=== PATIENT | female | born 1955 | race Caucasian/White ===

== ENCOUNTER 2022-07-13 11:54 | Emergency (ER) | payer MEDICARE, BC, SELFPAY ==
[2022-07-13] VITALS (19 sets, daily range): BP systolic 126–140; BP diastolic 67–97; PULSE 68–79; RESP 18; TEMP 36.2; O2SAT 90–99; BMI 37.8
--- NOTE | 2022-07-13 12:22 | CRLHL7_ITS ---
For Patients: As a result of the Century Cures Act, medical imaging exams and procedure reports are released immediately into your electronic medical record. You may view this report before your referring provider. If you have questions, please contact your health care provider. CLINICAL HISTORY: Right upper quadrant pain FINDINGS: Liver is enlarged measuring 17.9 centimeters increased echogenicity of the liver. There is a normal appearance of the hepatic IVC and proximal abdominal aorta. There is no evidence of ascites. The gallbladder is of normal size and there is no evidence of intraluminal stones or sludge. The gallbladder wall measures 1 mm in thickness. The common bile duct is of normal size and measures 4 mm in diameter at the level of the tia hepatis. The pancreas is poorly seen. There is no evidence of a stone or hydronephrosis within the right kidney. The right kidney measures 10.2 cm in length. IMPRESSION: 1. Hepatomegaly with hepatic steatosis. Dictated by Rubia Ram MD @ 07/13/2022 2:48:22 PM (Electronically Signed)
--- NOTE | 2022-07-13 12:24 | CRLHL7_ITS ---
For Patients: As a result of the Century Cures Act, medical imaging exams and procedure reports are released immediately into your electronic medical record. You may view this report before your referring provider. If you have questions, please contact your health care provider. INDICATION: Vomiting TECHNIQUE: Abdomen/Pelvis radiograph 3 views COMPARISON: None FINDINGS: The sensitivity and specificity of the exam are moderately limited by the patient`s body habitus. Bowel: The bowel gas pattern is normal without evidence of bowel obstruction but evaluation is limited by the paucity of bowel gas present. Soft tissue: No evidence of pneumoperitoneum present. No suspicious calcifications noted. Bone: Trace levoscoliosis is present with severe degenerative disc disease seen at L3-4. IMPRESSION: 1. Unremarkable appearance of the visualized abdomen. Dictated by Jonathan Ramos MD @ 07/13/2022 1:03:08 PM Dictated by: Jonathan Ramos MD @ 07/13/2022 13:03:13 (Electronically Signed)
[2022-07-13 12:34] LABS: Lactate* 1.3 mmol/L (0.5-1.9)
[2022-07-13 12:36] LABS: Basophils Absolute Auto 0.02 K/uL (0.00-0.30); Basophils Percent Auto 0.2 % (0.0-3.0); Eosinophils Absolute Auto 0.19 K/uL (0.00-0.50); Eosinophils Percent Auto 1.8 % (0.0-7.0); Hematocrit 46.3 % (33.0-51.0); Hemoglobin* 16.1 gm/dL (12.0-16.0); Immature Granulocytes Abs Auto 0.01 K/uL (0.00-0.30); Immature Granulocytes Pct Auto 0.1 %; Lymphocytes Percent Auto 5.9 % (20-44); Mean Corpuscular HGB Conc 35 gm/dL (32-36); Mean Corpuscular Hemoglobin 31 pg (26-34); Mean Corpuscular Volume 88 fL (80-100); Monocytes Percent Auto 6.1 % (0.0-11.0); Neutrophils Percent Auto 85.9 % (42.0-72.0); Platelet Count* 230 K/uL (140-440); RDW Coefficient of Variation % 13.7 % (11.5-15.5); Red Blood Count 5.24 m/uL (4.00-5.20); White Blood Count* 10.67 K/uL (4.50-11.00)
[2022-07-13 12:41] LABS: Troponin, Point-of-Care* 0.01 ng/ml (0.01-0.04)
[2022-07-13 12:48] LABS: Slide Review Reflex No
[2022-07-13] MEDS: ONDANSETRON 2 MG/ML inj 4 MG IVP (12:48)
[2022-07-13] MEDS: SUCRALFATE 1 GM TABLET PO (12:48)
[2022-07-13] MEDS: 0.9 % SODIUM CHLORIDE 1000 ml 1,000 ML IV (12:48)
[2022-07-13 12:50] LABS: Albumin* 4.4 g/dL (3.3-5.0); Chloride* 106 mmol/L (96-114); Sodium* 139 mmol/L (135-149)
[2022-07-13 12:51] LABS: Potassium* 4.1 mmol/L (3.6-5.1)
[2022-07-13 12:53] LABS: Carbon Dioxide* 25 mmol/L (20-32); Creatinine* 0.8 mg/dL (0.5-1.5); Est. Creatinine Clearance* 41.19; Estimated Glomerular Filt Rate 81 ml/min
[2022-07-13 12:54] LABS: Alanine Aminotransferase* 60 U/L (4-35); Alkaline Phosphatase* 97 U/L (40-150); Aspartate Amino Transferase* 37 U/L (12-35); Bilirubin Direct* 0.4 mg/dL (0.0-0.5); Bilirubin Total* 1.1 mg/dL (0.1-1.5); Blood Urea Nitrogen* 25 mg/dL (7-30); Calcium* 9.3 mg/dL (8.4-10.6); Glucose* 113 mg/dL (60-115); Lipase* 39 U/L (23-300); Total Protein* 7.1 g/dL (6.0-8.3)
[2022-07-13 12:57] LABS: C Reactive Protein* 0.5 mg/dL (0.5-1.0)
--- NOTE | 2022-07-13 13:08 | ED.GENADULT ---
HPI - General Adult General Chief complaint: Nausea/Vomiting Stated complaint: Diarrhea, vomiting, abdominal pain Time Seen by Provider: 07/13/22 12:15 Source: patient Mode of arrival: ambulatory Limitations: no limitations History of Present Illness HPI narrative: 67-year-old female coming in today complaining of nausea, vomiting and diarrhea. These things all started in the middle of the night. Patient states that she had supper around 8:00 p.m. and approximately 4 hours later her symptoms started. She has had about 3 episodes of diarrhea and a handful of episodes of vomiting. She denies any blood in her stool or vomitus. No fevers or chills. She is complaining of abdominal discomfort that is epigastric in nature and radiates to the left and the right. It comes and goes in waves. She states the same thing happened to her approximately 2 weeks ago and lasted 3 days. She states at that time she did have a fever for 1 day which resolved. She denies any recent antibiotic use. States that she is passing gas. Related Data Previous Rx's Medication Instructions Recorded sucralfate 1 gram tablet (Carafate) 1 g PO QID PRN #30 tabs 07/13/22 Allergies Allergy/AdvReac Type Severity Reaction Status Date / Time metronidazole [From Flagyl] Allergy Verified 07/13/22 12:05 Sulfa (Sulfonamide Allergy Verified 07/13/22 12:05 Antibiotics) Review of Systems Status of ROS: Reports: 10 or more systems reviewed and unremarkable except as noted in History and below PFSH PFS Social History Smoking Status: Former smoker Do you use any of these nicotine containing products: None Second hand tobacco smoke exposure: No How often do you have a drink containing alcohol: monthly or less AUDIT-C Alcohol total score: 1 Non-prescribed substance use: denies use Exam Narrative: Exam Narrative: Well-nourished well-developed patient in no acute distress but is slightly anxious. Alert and oriented. Answers questions appropriately. Thoughts are goal oriented and rational. No tangential or magical thinking noted. Patient speaks in full sentences without needing to catch her breath. HEENT: Normocephalic atraumatic. Pupils are equally round reactive to light. Extraocular muscles are intact. Conjunctivae are moist without any icterus noted. Moist mucous membranes. Posterior pharynx is normal. Neck is soft without any lymphadenopathy or thyromegaly. No masses are appreciated. Cardiovascular: Heart is regular rate and rhythm S1 and S2 are present without any murmurs. Lungs: Clear to auscultation bilaterally no wheezes rhonchi or rales are appreciated. Patient takes deep breaths without any discomfort. Abdomen: Protuberant and soft. Patient has diffuse discomfort over the upper abdomen. Negative Lopez sign. Slightly hypoactive bowel sounds. Extremities: Bilateral lower extremities are without edema. Normal DP and PT pulses. Skin: Well perfused without any obvious rashes. Const: Vital Signs, click to edit/add: Vital Signs - 24 hr 07/13/22 12:06 07/13/22 12:29 07/13/22 12:30 Temperature 97.1 F L Pulse Rate 75 75 Pulse Rate [Right Pulse Oximeter] 78 Respiratory Rate 18 Blood Pressure Blood Pressure [Ri ght Upper Arm] 140/83 H Pulse Oximetry 99 93 93 Oxygen Delivery Or thod Room Air Room Air 07/13/22 12:55 07/13/22 12:56 07/13/22 13:00 Temperature Pulse Rate 77 73 72 Pulse Rate [Right Pulse Oximeter] Respiratory Rate Blood Pressure 139/97 H Blood Pressure [Ri ght Upper Arm] Pulse Oximetry 90 90 [facility] 07/[facility] 13:02 07/13/22 13:15 07/13/22 13:30 Temperature Pulse Rate 72 69 70 Pulse Rate [Right Pulse Oximeter] Respiratory Rate Blood Pressure 139/81 Blood Pressure [Ri ght Upper Arm] Pulse Oximetry 90 96 96 [facility] 07/13/22 13:32 Temperature Pulse Rate 68 Pulse Rate [Right Pulse Oximeter] Respiratory Rate Blood Pressure 132/74 Blood Pressure [Ri ght Upper Arm] Pulse Oximetry 96 Oxygen Delivery Me thod Course Course Hospital Course: EKG, read by me, shows normal sinus rhythm with a left axis deviation, pulse 72. Lab work was unremarkable aside from signs of mild dehydration and slightly elevated LFTs consistent with the hepatomegaly and hepatic steatosis seen on ultrasound. No evidence of any gallbladder disease. Troponin was normal. Repeat troponin was 0. Patient received Carafate while she was here as well as Zofran and IV fluids which helped her symptoms quite a bit. She did not vomit while he was here but did have a couple episodes of loose stools. C diff colitis was negative. Vital Signs Vital signs: Initial Vital Signs Temperature 97.1 F L 07/13/22 12:06 Temperature Source Temporal Artery Scan 07/13/22 12:06 Pulse Rate 78 07/13/22 12:06 Respiratory Rate 18 07/13/22 12:06 Blood Pressure 140/83 H 07/13/22 12:06 Blood Pressure Mean 102 07/13/22 12:06 Blood Pressure Position Sitting 07/13/22 12:06 Pulse Oximetry 99 07/13/22 12:06 Oxygen Delivery Method 07/13/22 12:06 Vital Signs Temperature 97.1 F L 07/13/22 12:06 Pulse Rate 78 07/13/22 12:06 Respiratory Rate 18 07/13/22 12:06 Blood Pressure 140/83 H 07/13/22 12:06 Pulse Oximetry 99 07/13/22 12:06 Oxygen Delivery Method 07/13/22 12:06 Temperature 97.1 F L 07/13/22 12:06 Pulse Rate 68 07/13/22 13:32 Respiratory Rate 18 07/13/22 12:06 Blood Pressure 132/74 07/13/22 13:32 Pulse Oximetry 96 07/13/22 13:32 Oxygen Delivery Method 07/13/22 12:29 Medical Decision Making MDM Narrative Medical decision making narrative: 67-year-old female with gastroenteritis. Encouraged her to increase her omeprazole to 40 mg daily just for a week. Will send her home with some Carafate for her discomfort. We discussed increasing oral hydration. Patient had no other questions. Lab Data Lab results reviewed: Yes I reviewed the patient's lab results Labs: Lab Results 07/13/22 07/13/22 07/13/22 Range/Units 12:20 12:20 12:20 WBC 10.67 (4.50-11.00) K/uL RBC 5.24 H (4.00-5.20) m/uL Hgb 16.1 H (12.0-16.0) gm/dL Hct 46.3 (33.0-51.0) % MCV 88 (80-100) fL MCH 31 (26-34) pg MCHC 35 (32-36) gm/dL RDW Coeff of Carlos 13.7 (11.5-15.5) % Plt Count 230 (140-440) K/uL Neut % (Auto) 85.9 H (42.0-72.0) % Lymph % (Auto) 5.9 L (20-44) % [place] % (Auto) 6.1 (0.0-11.0) % Eos % (Auto) 1.8 (0.0-7.0) % Baso % (Auto) 0.2 (0.0-3.0) % Neut # (Auto) 9.20 H (1.7-7.0) K/uL Lymph # (Auto) 0.60 L (0.90-2.90) K/uL [place] # (Auto) 0.70 (0.00-0.90) K/UL Eos # (Auto) 0.19 (0.00-0.50) K/uL Baso # (Auto) 0.02 (0.00-0.30) K/uL ESR 3 (2-20) mm/hr Sodium 139 (135-149) mmol/L Potassium 4.1 (3.6-5.1) mmol/L Chloride 106 (96-114) mmol/L Carbon Dioxide 25 (20-32) mmol/L BUN 25 (7-30) mg/dL Creatinine 0.8 (0.5-1.5) mg/dL Estimated Creat Clear 41.19 Estimated GFR 81 ml/min Glucose 113 (60-115) mg/dL Lactate (0.5-1.9) mmol/L Calcium 9.3 (8.4-10.6) mg/dL Total Bilirubin 1.1 (0.1-1.5) mg/dL Direct Bilirubin 0.4 (0.0-0.5) mg/dL AST 37 H (12-35) U/L ALT 60 H (4-35) U/L Alkaline Phosphatase 97 (40-150) U/L C-Reactive Protein 0.5 (0.5-1.0) mg/dL Total Protein 7.1 (6.0-8.3) g/dL Albumin 4.4 (3.3-5.0) g/dL Lipase 39 (23-300) U/L Stl C.difficile Tox PCR (Negative) St C. diff Tox Epid 027 (Negative) POC Troponin I (0.01-0.04) ng/ml 07/13/22 07/13/22 07/13/22 Range/Units 12:20 12:20 12:20 WBC (4.50-11.00) K/uL RBC (4.00-5.20) m/uL Hgb (12.0-16.0) gm/dL Hct (33.0-51.0) % MCV (80-100) fL MCH (26-34) pg MCHC (32-36) gm/dL RDW Coeff of Carlos (11.5-15.5) % Plt Count (140-440) K/uL Neut % (Auto) (42.0-72.0) % Lymph % (Auto) (20-44) % [place] % (Auto) (0.0-11.0) % Eos % (Auto) (0.0-7.0) % Baso % (Auto) (0.0-3.0) % Neut # (Auto) (1.7-7.0) K/uL Lymph # (Auto) (0.90-2.90) K/uL [place] # (Auto) (0.00-0.90) K/UL Eos # (Auto) (0.00-0.50) K/uL Baso # (Auto) (0.00-0.30) K/uL ESR (2-20) mm/hr Sodium (135-149) mmol/L Potassium (3.6-5.1) mmol/L Chloride (96-114) mmol/L Carbon Dioxide (20-32) mmol/L BUN (7-30) mg/dL Creatinine (0.5-1.5) mg/dL Estimated Creat Clear Estimated GFR ml/min Glucose (60-115) mg/dL Lactate 1.3 (0.5-1.9) mmol/L Calcium (8.4-10.6) mg/dL Total Bilirubin Cancelled (0.1-1.5) mg/dL Direct Bilirubin Cancelled (0.0-0.5) mg/dL AST Cancelled (12-35) U/L ALT Cancelled (4-35) U/L Alkaline Phosphatase Cancelled (40-150) U/L C-Reactive Protein (0.5-1.0) mg/dL Total Protein Cancelled (6.0-8.3) g/dL Albumin Cancelled (3.3-5.0) g/dL Lipase Cancelled (23-300) U/L Stl C.difficile Tox PCR (Negative) St C. diff Tox Epid 027 (Negative) POC Troponin I 0.01 (0.01-0.04) ng/ml 07/13/22 Range/Units 14:35 WBC (4.50-11.00) K/uL RBC (4.00-5.20) m/uL Hgb (12.0-16.0) gm/dL Hct (33.0-51.0) % MCV (80-100) fL MCH (26-34) pg MCHC (32-36) gm/dL RDW Coeff of Carlos (11.5-15.5) % Plt Count (140-440) K/uL Neut % (Auto) (42.0-72.0) % Lymph % (Auto) (20-44) % [place] % (Auto) (0.0-11.0) % Eos % (Auto) (0.0-7.0) % Baso % (Auto) (0.0-3.0) % Neut # (Auto) (1.7-7.0) K/uL Lymph # (Auto) (0.90-2.90) K/uL [place] # (Auto) (0.00-0.90) K/UL Eos # (Auto) (0.00-0.50) K/uL Baso # (Auto) (0.00-0.30) K/uL ESR (2-20) mm/hr Sodium (135-149) mmol/L Potassium (3.6-5.1) mmol/L Chloride (96-114) mmol/L Carbon Dioxide (20-32) mmol/L BUN (7-30) mg/dL Creatinine (0.5-1.5) mg/dL Estimated Creat Clear Estimated GFR ml/min Glucose (60-115) mg/dL Lactate (0.5-1.9) mmol/L Calcium (8.4-10.6) mg/dL Total Bilirubin (0.1-1.5) mg/dL Direct Bilirubin (0.0-0.5) mg/dL AST (12-35) U/L ALT (4-35) U/L Alkaline Phosphatase (40-150) U/L C-Reactive Protein (0.5-1.0) mg/dL Total Protein (6.0-8.3) g/dL Albumin (3.3-5.0) g/dL Lipase (23-300) U/L Stl C.difficile Tox PCR Negative (Negative) St C. diff Tox Epid 027 PRESUMPTIVE NEGATIVE (Negative) POC Troponin I (0.01-0.04) ng/ml Imaging Data Abdominal x-ray: Attestation: I have reviewed the pertinent imaging results. Radiologist's impression: TECHNIQUE: Abdomen/Pelvis radiograph 3 views COMPARISON: None FINDINGS: The sensitivity and specificity of the exam are moderately limited by the patient`s body habitus. Bowel: The bowel gas pattern is normal without evidence of bowel obstruction but evaluation is limited by the paucity of bowel gas present. Soft tissue: No evidence of pneumoperitoneum present. No suspicious calcifications noted. Bone: Trace levoscoliosis is present with severe degenerative disc disease seen at L3-4. IMPRESSION: 1. Unremarkable appearance of the visualized abdomen. US - abdomen: Attestation: I have reviewed the pertinent imaging results. Radiologist's impression: Study:?US Abdomen -07/13/2022 2:19:15 PM Ordering Physician:Ashok Boyce Final Report: CLINICAL HISTORY: Right upper quadrant pain FINDINGS: Liver is enlarged measuring 17.9 centimeters increased echogenicity of the liver. There is a normal appearance of the hepatic IVC and proximal abdominal aorta. There is no evidence of ascites. The gallbladder is of normal size and there is no evidence of intraluminal stones or sludge. The gallbladder wall measures 1 mm in thickness. The common bile duct is of normal size and measures 4 mm in diameter at the level of the tia hepatis. The pancreas is poorly seen. There is no evidence of a stone or hydronephrosis within the right kidney. The right kidney measures 10.2 cm in length. IMPRESSION: 1. Hepatomegaly with hepatic steatosis. ECG Data Attestation: I personally reviewed and interpreted this ECG as follows: Discharge Plan Discharge Clinical Impression: Gastroenteritis Patient Disposition: Home, Self-Care Condition: Stable Additional Instructions: Make sure to increase fluid intake. Okay to take Imodium as needed to slow down her diarrhea. Recommend you increase your omeprazole to 40 mg daily for 1 week. You will be sent home with a prescription for Carafate which will help coat the lining of the stomach and decreased pain. Follow-up with your primary care provider if you are not improving. Prescriptions: New sucralfate [Carafate] 1 gram tablet 1 g PO QID PRNQty: 30 0RF Follow Up/Referrals: Rose Tavera PA [Primary Care Provider] - Stand Alone Forms: [employer] Info Instructions
[2022-07-13 13:17] LABS: Erythrocyte SedimentationRate* 3 mm/hr (2-20)
[2022-07-13 15:47] LABS: C.Difficile Negative (Negative); CDIFFEPI 027 PRESUMPTIVE NEGATIVE (Negative)
[2022-07-13] MEDS: GI COCKTAIL (VISC LIDO/ANTACID) 30 ML PO (16:13)
== END 2022-07-13 16:45 | disposition home or self-care (01) ==
PROVIDERS: Emergency Provider Family Medicine; PCP Physician Assistant
DX: K52.9 Noninfective gastroenteritis and colitis, unspecified (principal)
CPT/HCPCS: 36415; 74019; 76705; 80048; 80076; 83605; 83690; 84484; 85025; 85651; 86140; 87493; 93005; 94761; 96361; 96374; 99284; 99285; A9270; J2405; J7030

== ENCOUNTER 2023-11-07 15:22 | Emergency (ER) | payer MEDICARE, BC, SELFPAY ==
[2023-11-07 15:38] VITALS: BP 146/74; PULSE 72; RESP 20; TEMP 36.6; O2SAT 95; BMI 39.7
--- NOTE | 2023-11-07 16:21 | ED.BACK ---
HPI - Back Pain/Injury General Chief Complaint: Back Injury/Pain Stated Complaint: Lower back/R leg pain Time Seen by Provider: 11/07/23 15:23 History of Present Illness HPI Narrative: This 68-year-old female comes in with severe low back pain radiating down her right leg. She has a history of chronic back pain and has had MRI a couple years ago and has had a couple therapeutic injections bring in relief. She does not report any recent injury event or strenuous activity but states that she did VAC in her house a couple days ago. 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 This morning she awoke with severe pain radiating down most of her right leg. She went in to [facility] because there were no appointments available. An x-ray was done and the patient was told that she probably needs to go to the ER and probably needs an MRI. The patient asks the physician's or assistant there to give a call to the emergency department here but the provider said that she does not do that. The patient is taking an NSAID and Tylenol. She also takes gabapentin. She states that a straight leg raise was done at the clinic and it made the pain much worse. Related Data Home Medications Medication Instructions Recorded Confirmed gabapentin 100 mg capsule 300 - 600 mg PO Q12H 07/01/23 11/07/23 aspirin 81 mg capsule 81 mg PO DAILY 11/07/23 11/07/23 atorvastatin 40 mg tablet 40 mg PO DAILY 11/07/23 11/07/23 docusate sodium 100 mg capsule 100 mg PO QHS 11/07/23 11/07/23 (Dulcolax Stool Softener (docusate)) fluoxetine .ROUTE DAILY 11/07/23 hydrochlorothiazide 25 mg tablet 25 mg PO DAILY 11/07/23 11/07/23 hydroxyzine pamoate 25 mg capsule 25 mg PO HS 11/07/23 11/07/23 Previous Rx's Medication Instructions Recorded sucralfate 1 gram tablet (Carafate) 1 g PO QID PRN #30 tabs 07/13/22 benzonatate 200 mg capsule 200 mg PO BID-TID PRN cough #14 07/01/23 caps cyclobenzaprine 5 mg tablet 5 mg PO TID PRN muscle spasm #20 11/07/23 tabs hydrocodone 5 mg-acetaminophen 325 1 tab PO Q4-6H PRN pain #20 tabs 11/07/23 mg tablet methylprednisolone 4 mg tablets in See Rx Instructions PO .COMPLEX 11/07/23 a dose pack (Medrol (Ronan)) #21 ea Allergies Allergy/AdvReac Type Severity Reaction Status Date / Time Sulfa (Sulfonamide Allergy Severe Hives Verified 11/07/23 15:38 Antibiotics) metronidazole [From Flagyl] Allergy Intermediate swollen Verified 11/07/23 15:38 joints Review of Systems Status of ROS: Reports: 10 or more systems reviewed and unremarkable except as noted in History and below Narrative: Constitutional: No fevers, no weight gain or loss. Eyes: No discharge. No vision changes. HENT: No congestion, no sore throat, no ear pain. Cardiovascular: No chest pain, no palpitations. Respiratory: No shortness of breath, no wheezes, no cough. Gastrointestinal: No abdominal pain, no vomiting, no diarrhea. Genitourinary: No dysuria, no hematuria. Musculoskeletal: Low back pain radiating down the right leg as described above. Skin: No rashes, no pruritis. Neurological: No dizziness, weakness, sensory change, speech change. Endo/Heme/Allergies: No bruising or bleeding. No polydipsia. Pysch: no suicidality, no anxiety, no insomnia. All other systems reviewed and are negative. [facility] Social History Smoking Status: Former smoker Do you use any of these nicotine containing products: None Second hand tobacco smoke exposure: No How often do you have a drink containing alcohol: monthly or less AUDIT-C Alcohol total score: 1 Non-prescribed substance use: denies use Exam Narrative: Exam Narrative: Constitutional: Well-developed, well-nourished, no acute distress. HEENT: Normocephalic, atraumatic. Neck: Normal range of motion. Nontender. Supple. Heart: Regular. No murmurs. Normal rate. Intact distal pulses. Lungs: Clear to auscultation. No chest discomfort. No wheezes, rhonchi, or rales. Abdomen: Normal bowel sounds. Nontender. No rebound tenderness. Genitalia: Deferred. Back: No midline tenderness. Pain in the right side of the low back radiating down the right leg typical of lumbar radiculopathy. Extremities: Normal range of motion. No injury. Skin: Intact. No rash. Warm. No erythema or pallor. Neurologic: No altered sensation. No weakness. Alert and oriented. No anesthesia. No bowel or bladder incontinence or retention. Psychiatric: No suicidality. No anxiety or depression. No insomnia. Nursing notes and vitals signs are reviewed. Const: Vital Signs, click to edit/add: Vital Signs - 24 hr 11/07/23 15:38 Temperature 97.8 F Pulse Rate [Pulse Oximeter] 72 Respiratory Rate 20 Blood Pressure [Ri ght Upper Arm] 146/74 H Pulse Oximetry 95 Oxygen Delivery Me thod Room Air Course Vital Signs Vital signs: Initial Vital Signs Temperature 97.8 F 11/07/23 15:38 Temperature Source Temporal Artery Scan 11/07/23 15:38 Pulse Rate 72 11/07/23 15:38 Respiratory Rate 20 11/07/23 15:38 Blood Pressure 146/74 H 11/07/23 15:38 Blood Pressure Mean 98 11/07/23 15:38 Blood Pressure Position Semi-Fowlers 11/07/23 15:38 Pulse Oximetry 95 11/07/23 15:38 Oxygen Delivery Method Room Air 11/07/23 15:38 Vital Signs Temperature 97.8 F 11/07/23 15:38 Pulse Rate 72 11/07/23 15:38 Respiratory Rate 20 11/07/23 15:38 Blood Pressure 146/74 H 11/07/23 15:38 Pulse Oximetry 95 11/07/23 15:38 Oxygen Delivery Method Room Air 11/07/23 15:38 Temperature 97.8 F 11/07/23 15:38 Pulse Rate 72 11/07/23 15:38 Respiratory Rate 20 11/07/23 15:38 Blood Pressure 146/74 H 11/07/23 15:38 Pulse Oximetry 95 11/07/23 15:38 Oxygen Delivery Method Room Air 11/07/23 15:38 MDM - Back Pain/Injury MDM Narrative Medical decision making narrative: This patient comes in with low back pain typical of lumbar radiculopathy. She was at an urgent care at [facility] but had no treatments provided. An x-ray was obtained. The patient came here for pain management then. She does have an appointment with an orthopedic surgeon in the spine clinic in 3 days. I explained to the patient that MRI may be needed sometime in the future but we typically do not do that unless there are symptoms suspicious for cauda equina syndrome or some other emergency. The patient did receive an intramuscular injection of morphine 10 mg. I also provided prescriptions for [place], Flexeril, and Medrol Dosepak. She does have gabapentin and a NSAID that she is already using. She will follow up with her appointment in 3 days for ongoing management. Discharge Plan Discharge Clinical Impression: Lumbar radiculopathy Patient Disposition: Home w/ Parent or Adult Condition: Stable Additional Instructions: Take medications as prescribed. Activity as tolerated. Follow-up with appointment in the spine clinic at [facility] in 3 days as scheduled. Prescriptions: New cyclobenzaprine 5 mg tablet 5 mg PO TID PRN (Reason: muscle spasm) Qty: 20 0RF hydrocodone-acetaminophen 5-325 mg tablet 1 tab PO Q4-6H PRN (Reason: pain) Qty: 20 0RF methylprednisolone [Medrol (Ronan)] 4 mg tablets,dose pack See Rx Instructions .ROUTE .COMPLEX Qty: 21 0RF Rx Instructions: orally per package directions No Action gabapentin 100 mg capsule 300 - 600 mg PO Q12H Rx Instructions: 1 tablet in AM and 2 tablets in PM benzonatate 200 mg capsule 200 mg PO BID-TID PRN (Reason: cough) Qty: 14 0RF sucralfate [Carafate] 1 gram tablet 1 g PO QID PRNQty: 30 0RF hydrochlorothiazide 25 mg tablet 25 mg PO DAILY hydroxyzine pamoate 25 mg capsule 25 mg PO HS atorvastatin 40 mg tablet 40 mg PO DAILY docusate sodium [Dulcolax Stool Softener (dss)] 100 mg capsule 100 mg PO QHS fluoxetine [Prozac] .ROUTE DAILY aspirin 81 mg capsule 81 mg PO DAILY Follow Up/Referrals: Rose Tavera PA [Referring] - Stand Alone Forms: [employer] Info Instructions
[2023-11-07] MEDS: MORPHINE 10 MG/ML inj IM (16:26)
[2023-11-07 16:34] VITALS: O2SAT 97
[2023-11-07 16:47] VITALS: BP 146/74; PULSE 72; RESP 20; TEMP 36.6
[2023-11-07 16:48] VITALS: PULSE 63; RESP 14; O2SAT 94
== END 2023-11-07 16:50 | disposition home or self-care (01) ==
PROVIDERS: Emergency Provider Emergency Medicine Emergency Medical Services
DX: M54.16 Radiculopathy, lumbar region (principal)
CPT/HCPCS: 94761; 96372; 99284; J2270